=== PATIENT | male | born 1975 | race Caucasian/White ===

== ENCOUNTER 2022-04-19 11:32 | Emergency (ER) | payer OTHER ==
[~2022-04-19] VITALS: Ht 160 cm; Wt 68.2 kg
[2022-04-19] MEDS ORDERED: CEPHALEXIN MONOHYDRATE 500 MG CAPSULE PO ONE (12:15)
[2022-04-19] MEDS ORDERED: IBUPROFEN 600 MG TABLET PO ONE (12:15)
[2022-04-19] MEDS ORDERED: PERTUSS(ACELL),DIPH,TET VAC/PF 0.5 ML SYRINGE IM. ONE (12:15)
[2022-04-19] MEDS ORDERED: HYDROGEN PEROXIDE 118 ML SOLUTION TP ONE (12:15)
[2022-04-19] MEDS ORDERED: BACITRACIN 28 GM OINTMENT TP ONE (12:15)
[2022-04-19 13:15] VITALS: BP 146/93
== END 2022-04-19 14:11 | disposition home or self-care (01) ==
LOC: EMS 11:32
DX: S71.111A Laceration without foreign body, right thigh, initial encounter (principal); S11.91XA Laceration without foreign body of unspecified part of neck, initial encounter; S51.812A Laceration without foreign body of left forearm, initial encounter; S51.811A Laceration without foreign body of right forearm, initial encounter; F17.210 Nicotine dependence, cigarettes, uncomplicated; F19.10 Other psychoactive substance abuse, uncomplicated; X99.9XXA Assault by unspecified sharp object, initial encounter; Y93.89 Activity, other specified; Y92.89 Other specified places as the place of occurrence of the external cause; Y99.8 Other external cause status
CPT/HCPCS: 90471; 90715; 99284